=== PATIENT | male | born 1970 | race Caucasian/White ===

== ENCOUNTER 2024-11-22 10:44 | Inpatient (IN) | payer SELFPAY ==
[~2024-11-22] VITALS: Ht 177.8 cm; Wt 77.3 kg
[~2024-11-22 10:44] MED LIST: ANEXIA PO
[2024-11-22 11:30] LABS: BASO % 0.3 % (0.0-1.0); EOS # 0.1 10^3/uL (0.0-0.5); EOS % 1.2 % (0.0-3.0); HEMATOCRIT 45.4 % (42.0-52.0); HEMOGLOBIN 15.9 g/dl (13.5-17.5); LYMPH # 1.8 10^3/uL (1.5-5.0); LYMPH % 31.4 % (24.0-44.0); MEAN CORPUSCULAR HEMOGLOBIN 29.9 pg (27.0-33.0); MEAN CORPUSCULAR VOLUME 85.3 fl (80.0-96.0); MONO # 0.4 10^3/uL (0.0-0.8); NEUTROPHILS # 3.4 10^3/uL (1.5-8.5); NEUTROPHILS % 59.8 % (36.0-66.0); PLATELET COUNT, AUTOMATED 272 10^3/uL (150-450); RED BLOOD COUNT 5.32 10^6/uL (4.30-6.10); WHITE BLOOD COUNT 5.7 10^3/uL (4.0-10.0)
[2024-11-22 11:32] LABS: VENOUS BASE EXCESS -1.3 (-2.0-2.0); VENOUS HCO3 24.8 MMOL/L (23.0-27.0); VENOUS O2 SATURATION 69.4 % (60.0-80.0); VENOUS PARTIAL PRESSURE O2 35.6 mmHg (30.0-50.0); VENOUS PH 7.349 UNITS (7.330-7.430); VENOUS STANDARD HCO3 22.7 MMOL/L; VENOUS TOTAL CO2 26.2 MMOL/L (24.0-28.0)
[2024-11-22 11:50] LABS: ETHYL ALCOHOL (ETHANOL) 0.017 % (0.000-0.010)
[2024-11-22 11:52] LABS: ALKALINE PHOSPHATASE 78 U/L (40-129); ALT/SGPT 17 U/L (7.0-40); AST/SGOT 17 U/L (<34); BILIRUBIN,DIRECT 0.2 MG/DL (<0.4); BILIRUBIN,TOTAL 0.9 MG/DL (0.3-1.2); BLOOD UREA NITROGEN 9 MG/DL (9-23); CALCIUM LEVEL 9.3 MG/DL (8.5-10.1); CARBON DIOXIDE LEVEL 29 MMOL/L (20-31); CHLORIDE LEVEL 105 MMOL/L (98-107); CREATININE FOR GFR 0.85 MG/DL (0.70-1.30); GLOMERULAR FILTRATION RATE > 60.0 (>56); GLUCOSE, FASTING 95 MG/DL (60-100); POTASSIUM SERUM 4.5 MMOL/L (3.5-5.1); SALICYLATE LEVEL < 3.0 MG/DL (<30); SODIUM LEVEL 139 MMOL/L (136-145); TOTAL PROTEIN 7.2 G/DL (5.7-8.2)
[2024-11-22 11:53] LABS: THYROID STIMULATING HORMONE 2.039 uIU/ML (0.55-4.78)
[2024-11-22 12:03] LABS: OSMOLALITY SERUM 295 MOSM/KG (275-295)
[2024-11-22] MEDS: diphenhydrAMINE 50MG/ML VIAL IV STA (12:46)
[2024-11-22] MEDS: METOCLOPRAMIDE INJ 10MG/2ML VIAL IV ONE (12:50)
[2024-11-22] MEDS: ACETAMINOPHEN *IV* 1,000 MG in IV 1 EA IV ONE (12:50)
[2024-11-22] MEDS ORDERED: LORazepam 2 MG TAB PO PRN (12:50)
[2024-11-22 12:55] LABS: KETONE, URINE AUTO RFX NEGATIVE (NEGATIVE); LEUKOCYTE ESTERASE UR AUTO RFX NEGATIVE (NEGATIVE); MUCUS, URINE RFX SMALL (NEGATIVE); NITRITE, URINE AUTO RFX NEGATIVE (NEGATIVE); RBC, URINE AUTO RFX 0 /HPF (0-3); SQUAM EPITHELIAL CELL UR AURFX 0 /HPF (0-6); WBC, URINE AUTO RFX 1 /HPF (0-3)
[2024-11-22] MEDS: MULTIVITAMINS/MINERALS THERAP 1 TAB PO SCH (13:00)
[2024-11-22] MEDS: FOLIC ACID 1MG TAB PO SCH (13:00)
[2024-11-22] MEDS ORDERED: HOME MED LIST COMPLETE! XX SCH (13:30)
[2024-11-22] MEDS: AUGMENTIN 875 MG TAB PO SCH (14:20)
[2024-11-22 15:00] VITALS: BP 158/88
[2024-11-22 15:13] LABS: CK-MB VALUE MASS < 1.0 NG/ML (<3.6)
[2024-11-22 15:14] LABS: CPK CREATINE PHOSPHOKINASE 53 U/L (46-171); MB/CK RELATIVE INDEX 1.88 (< OR =4)
[2024-11-22 15:17] LABS: FOLATE 17.48 NG/ML (>5.4)
[2024-11-22] MEDS ORDERED: ISOVUE-370 76% 100ML VIAL As Ordered ONE (15:28)
[2024-11-22 15:44] VITALS: BP 158/88; TEMP 98; O2SAT 98
[2024-11-22] MEDS ORDERED: THIA100TA PO (16:13)
[2024-11-22] MEDS ORDERED: RAMI5CAP60 PO (16:13)
[2024-11-22] MEDS ORDERED: FOLI1TAB11 PO (16:13)
[2024-11-22] MEDS ORDERED: AMOX875T2 PO (16:13)
[2024-11-22] MEDS ORDERED: TALK1KIT MC (16:14)
[2024-11-22] MEDS ORDERED: MULT-90 PO (16:23)
[2024-11-22] MEDS ORDERED: NICO14DI6 TOP (16:23)
[2024-11-22] MEDS ORDERED: THIAMINE 100 MG TAB PO SCH (21:00)
[2024-11-23 15:53] LABS: HOMOCYST(E)INE SERUM 13.4 umol/L (<11.4)
== END 2024-11-22 15:30 | disposition left against medical advice (07) | DRG 199 ==
LOC: M ED 10:44 → M ED INP 14:16
PROVIDERS: ADMIT General Practice; ATTEND General Practice
DX: I16.0 Hypertensive urgency (principal); G31.2 Degeneration of nervous system due to alcohol; F10.239 Alcohol dependence with withdrawal, unspecified; F17.200 Nicotine dependence, unspecified, uncomplicated; K44.9 Diaphragmatic hernia without obstruction or gangrene; J32.0 Chronic maxillary sinusitis; Z91.119 Patient's noncompliance with dietary regimen due to unspecified reason; Z91.030 Bee allergy status